=== PATIENT | female | born 2000 | race Caucasian/White ===

== ENCOUNTER 2020-02-13 13:21 | Emergency (ER) | payer MEDICAID ==
--- NOTE | 2020-02-13 13:33 | ED.PDOC ---
History of Present Illness - General Time Seen by Provider: 02/13/20 13:25 Source: patient Exam Limitations: no limitations - History of Present Illness Initial Comments: 19 yo F comes in with c/c of cough, chest pain. Does have hx of asthma, has been using her inhaler, but hasn't been helping. No shortness breath. Patient also hx of PCOS. Has not had period in one month. Has bilateral pelvic cramping. States she took a test one was positive and another was negative, so unsure if shes . +n no d/c. no black or bloody bm. Denies fever or sick contacts. no sore throat or change in taste or smell. no headache. Has some chest pain thats worse with deep breaths. Allergies/Adverse Reactions: Allergies Penicillins Allergy (Verified 02/13/20 13:39) Home Medications: Ambulatory Orders Albuterol Inhaler [Ventolin Hfa Inhaler] 1 puff INH PRN 02/13/20 Metoprolol Succinate [Metoprolol Succinate ER] 50 mg PO DAILY 02/13/20 Prednisone 20 mg PO DAILY #5 tab 02/13/20 Review of Systems - Review of Systems Constitutional: Denies: chills, diaphoresis, fever, malaise EENTM: Denies: blurred vision, tearing, nose congestion, throat pain, mouth pain Respiratory: States: cough, wheezing. Denies: orthopnea, short of breath Cardiology: States: chest pain. Denies: edema, palpitations, syncope Gastrointestinal/Abdominal: States: nausea. Denies: constipation, diarrhea, vomiting Genitourinary: Denies: discharge, dysuria, frequency, hematuria Musculoskeletal: Denies: back pain, joint pain, muscle pain Skin: Denies: change in color, rash Neurological: Denies: headache, numbness, paresthesia, seizure, tingling, tremors, weakness Endocrine: Denies: increased hunger, increased thirst, increased urine, unexplained weight gain, unexplained weight loss Hematologic/Lymphatic: Denies: blood clots, easy bleeding, easy bruising Past Medical History (General) - Patient Medical History Hx Asthma: Yes Hx Other PMH: Yes - PCOS - Social History Hx Substance Use: No Family Medical History - Family History Mother Family History: Unknown Living Status: Unknown Physical Exam - Physical Exam General Appearance: Alert, Comfortable, No apparent distress Eye Exam: bilateral normal Ears, Nose, Throat: hearing grossly normal, normal ENT inspection, normal phary nx Neck: non-tender, full range of motion, supple, normal inspection Respiratory: chest non-tender, lungs clear, normal breath sounds, no respiratory distress, no accessory muscle use Cardiovascular/Chest: normal peripheral pulses, regular rate, rhythm, no edema, no gallop, no JVD, no murmur Peripheral Pulses: radial,right: 2+, radial,left: 2+, dorsalis pedis,right: 2+, dorsalis pedis,left: 2+, posterior tibialis,right: 2+, posterior tibialis,left: 2+ Gastrointestinal/Abdominal: normal bowel sounds, non tender, soft, no organomegaly, no pulsatile mass - no rebound or gaurding. Rectal Exam: deferred Back Exam: normal inspection, no CVA tenderness, no vertebral tenderness Extremity: normal range of motion, non-tender, normal inspection, no pedal edema, no calf tenderness, normal capillary refill Neurologic: cdl driver II-XII nml as tested, no motor/sensory deficits, alert, normal mood/affect, oriented x 3 Skin Exam: normal color, warm/dry Lymphatic: no adenopathy Progress - Progress Progress: 02/13/20 14:01 Patient resting comfortably, vss, resp nonlabored. no wheezing appreciated. partial ddx: covid, asthma exacerbation, pneumonia, costochondritis, pericarditis, pleuritis. will get blood work, including test, UA. Will also get cxr and ekg. If test negative will give steroid for pain/cough. CXR: no acute abnormality. bedside US showed good contractility, no evidence of pericardial fluid. 02/13/20 14:50 The data reviewed when caring for this patient included: nurse notes, prior records, etc. The history and assessments from nurses notes were reviewed and considered, and the patient's home medication list was also reviewed and considered. My assessment and the results of testing completed here in the ED were discussed with the patient/family. All questions were answered, and they express understanding of my assessment and the plan. They have been instructed to return if their symptoms worsen, and have been asked to follow up with their primary care physician to recheck today's presenting complaint. return precautions given. I have reviewed medication, benefits, alternatives and side effects. Patient decided to proceed with medication.VSS, patient discharged home in stable condition. Tiffanie Harding DO #[id number] 02/13/20 15:05 - Results/Orders Results/Orders: 02/13/20 13:39 EKG Assessment ONCE 02/13/20 13:45 EKG STAT 02/13/20 13:51 RESPIRATORY PANEL 2 Stat Laboratory Results WBC 10.4 K/mm3 (4.8-10.8) 02/13/20 13:51 RBC 4.92 M/mm3 (4.20-5.40) 02/13/20 13:51 Hgb 14.9 gm/dL (12.0-16.0) 02/13/20 13:51 Hct 43.3 % (36.0-47.0) 02/13/20 13:51 MCV 88.1 fl (81.0-99.0) 02/13/20 13:51 MCH 30.3 pg (27.0-31.0) 02/13/20 13:51 MCHC 34.4 g/dL (33.0-37.0) 02/13/20 13:51 RDW 12.5 % (11.5-14.5) 02/13/20 13:51 Plt Count 234 K/mm3 (130-400) 02/13/20 13:51 MPV 8.9 fl (7.40-10.4) 02/13/20 13:51 Absolute Neuts (auto) 7.00 K/uL (1.8-6.8) H 02/13/20 13:51 Absolute Lymphs (auto) 2.40 K/uL (1.0-3.4) 02/13/20 13:51 Absolute Monos (auto) 0.80 K/uL (0.2-0.8) 02/13/20 13:51 Absolute Eos (auto) 0.20 K/uL (0.0-0.4) 02/13/20 13:51 Absolute Basos (auto) 0.10 K/uL (0.0-0.1) 02/13/20 13:51 Neutrophils % 67.5 % (42.0-78.0) 02/13/20 13:51 Lymphocytes % 22.8 % (20.0-50.0) 02/13/20 13:51 Monocytes % 7.4 % (2.0-9.0) 02/13/20 13:51 Eosinophils % 1.6 % (1.0-5.0) 02/13/20 13:51 Basophils % 0.7 % (0.0-2.0) 02/13/20 13:51 Sodium 137 mmol/L (135-145) 02/13/20 13:51 Potassium 4.2 mmol/L (3.6-5.0) 02/13/20 13:51 Chloride 101 mmol/L (101-111) 02/13/20 13:51 Carbon Dioxide 27 mmol/L (21-31) 02/13/20 13:51 Anion Gap 13.2 (12-18) 02/13/20 13:51 BUN 10 mg/dL (7-18) 02/13/20 13:51 Creatinine 0.78 mg/dL (0.6-1.3) 02/13/20 13:51 BUN/Creatinine Ratio 12.8 (10-20) 02/13/20 13:51 Random Glucose 106 mg/dL (70-105) H 02/13/20 13:51 Serum Osmolality 273.3 mOsm/L (275-295) L 02/13/20 13:51 Calcium 9.2 mg/dL (8.4-10.2) 02/13/20 13:51 Total Bilirubin 0.8 mg/dL (0.2-1.0) 02/13/20 13:51 AST 20 IU/L (10-42) 02/13/20 13:51 ALT 32 IU/L (10-60) 02/13/20 13:51 Alkaline Phosphatase 73 IU/L (180-700) L 02/13/20 13:51 Troponin I < 0.02 ng/mL (0.01-0.05) 02/13/20 13:51 C-Reactive Protein 0.9 mg/dL (0-1.0) 02/13/20 13:45 Serum Total Protein 7.3 gm/dL (6.4-8.2) 02/13/20 13:51 Albumin 4.0 g/dl (3.2-5.5) 02/13/20 13:51 Globulin 3.3 gm/dL (2.3-3.5) 02/13/20 13:51 Albumin/Globulin Ratio 1.2 (1.1-1.9) 02/13/20 13:51 Lipase 20 U/L (22-51) L 02/13/20 13:51 Serum HCG, Qual Negative (NEGATIVE) 02/13/20 13:51 Urine Color Yellow (Yellow) 02/13/20 14:26 Urine Appearance Clear (Clear) 02/13/20 14:26 Urine pH 7.5 (4.5-7.8) 02/13/20 14:26 Ur Specific Braham 1.025 (1.005-1.030) 02/13/20 14:26 Urine Protein Negative mg/dL 02/13/20 14:26 Urine Glucose (UA) Negative mg/dL (Negative) 02/13/20 14:26 Urine Ketones Negative mg/dL (NEGATIVE) 02/13/20 14:26 Urine Blood Negative (Negative) 02/13/20 14:26 Urine Nitrite Negative 02/13/20 14:26 Urine Bilirubin Negative (NEGATIVE) 02/13/20 14:26 Urine Urobilinogen 0.2 mg/dL (0.2-1.0) 02/13/20 14:26 Ur Leukocyte Esterase Negative (Negative) 02/13/20 14:26 Urine RBC 0 /hpf 02/13/20 14:26 Urine WBC 1-3 /hpf 02/13/20 14:26 Ur Epithelial Cells 20-30 /hpf 02/13/20 14:26 Urine Bacteria 1+ 02/13/20 14:26 - EKG/XRAY/CT EKG: Sinus - HR 90, NSR with sinus arrhythmia, T wave inversion in lead III, can be normal variant. Early repolarization pattern, no prior for comparision. normal intervals, normal QTc Departure - Departure Clinical Impression: Cough, Pleuritic chest pain Time of Disposition: 14:59 Disposition: Discharge to Home or Self Care Instructions: Cough in Adults, Pleuritic Chest Pain Referrals: SIMÓN FERRER [Primary Care Provider] - 1-5 Days Prescriptions: Prednisone 20 mg PO DAILY #5 tab Home Medications: Ambulatory Orders Albuterol Inhaler [Ventolin Hfa Inhaler] 1 puff INH PRN 02/13/20 Metoprolol Succinate [Metoprolol Succinate ER] 50 mg PO DAILY 02/13/20 Prednisone 20 mg PO DAILY #5 tab 02/13/20
[2020-02-13] MEDS ORDERED: predniSONE 20 MG TAB PO ONE (14:17)
[2020-02-13] MEDS ORDERED: ONDANSETRON INJ 4 MG/2 ML VIAL IV ONE (14:21)
[2020-02-13] MEDS ORDERED: ONDANSETRON ODT 8 MG TAB ONE (14:26)
--- NOTE | 2020-02-13 14:33 | RAD ---
Procedure: XR CHEST 2 VIEWS Exam Date: 02/13/2020 Ordering Provider: Tiffanie Harding Clinical Indication: chest pain Comparison: 10/26/2018 Findings: Cardiomediastinal silhouette is within normal limits. No focal lung consolidation. No pleural effusion. No pneumothorax. No acute osseous abnormality. Impression: 1. No acute abnormality in the chest. Electronically signed by: Richardson Light MD 02/13/2020 2:31 PM CDT
[2020-02-13 15:10] VITALS: BP 110/83; TEMP 97.7; O2SAT 95
== END 2020-02-13 15:11 | disposition home or self-care (01) ==
LOC: ER 13:21
DX: R07.1 Chest pain on breathing (principal); R05 Cough; J45.909 Unspecified asthma, uncomplicated; Z79.899 Other long term (current) drug therapy; Z88.0 Allergy status to penicillin; Z20.828 Contact with and (suspected) exposure to other viral communicable diseases; Z32.02 Encounter for pregnancy test, result negative
CPT/HCPCS: 36415; 71046; 80053; 81001; 83690; 84484; 84703; 85025; 86140; 87635; 93005; J7512